=== PATIENT | male | born 1945 | race African-American/Black ===

== ENCOUNTER 2021-05-21 15:08 | Inpatient (IN) | payer MEDICARE, MEDICAID ==
[2021-05-21] MEDS ORDERED: Ondansetron PF 4 MG/2 ML Vial IVP PRN (23:30)
[2021-05-21] MEDS ORDERED: Docusate 100 MG CAP PO PRN (23:35)
[2021-05-22 00:30] VITALS: BMI 20.2
[2021-05-22 05:14] LABS: Anion Gap 13 mmol/L (10-20); BUN (Urea Nitrogen) 12 mg/dL (8.4-25.7); Calc. Creatinine Clearance 65 mL/min (70-130); Carbon Dioxide 24 mmol/L (23-31); Chloride 103 mmol/L (98-107); Glucose 70 mg/dL (83-110); Potassium 3.9 mmol/L (3.5-5.1); Sodium 136 mmol/L (136-145)
[2021-05-22 05:17] LABS: ALT (SGPT) 283 U/L (8-55); AST (SGOT) 282 U/L (5-34); Albumin 2.2 g/dL (3.4-4.8); Alkaline Phosphatase 128 U/L (40-110); Bilirubin, Total 1.5 mg/dL (0.2-1.2); Protein, Total 7.5 g/dL (5.8-8.1)
[2021-05-22 05:21] LABS: Band 8 % (5-11); Elliptocytes SLIGHT = 2-5 cells (100X) (0-1/hpf); Hemoglobin 8.9 g/dL (14.0-18.0); Hypochromia SLIGHT = 6-15 cells (100X) (0-5/hpf); Lymphocytes 6 % (21-51); MDiff Complete? YES; Mean Corpuscular HGB CONC 30.6 g/dL (32.0-36.0); Mean Corpuscular Hemoglobin 25.1 pg (27.0-31.0); Mean Corpuscular Volume 81.8 fL (78.0-98.0); Mean Platelet Volume 9.2 fL (7.4-10.4); Monocytes 7 % (0-10); Neutrophil 79 % (42-75); Platelet Count 450 thou/uL (130-400); Platelet Morphology Comment Appears Increased; Polychromasia SLIGHT = 2-3 cells (100X) (0-2/hpf); RBC Distribution Width 18.7 % (11.5-14.5); Red Blood Cell (RBC) Count 3.53 mill/uL (4.70-6.10); Target Cells SLIGHT = 2-5 cells (100X) (0-1/hpf); Troponin I 0.042 ng/mL (< 0.028); White Blood Cell (WBC) Count 20.8 thou/uL (4.8-10.8)
[2021-05-22] MEDS: Aspirin Chewable 81 MG TAB PO SCH (08:47)
[2021-05-22] MEDS: Clopidogrel Bisulfate 75 MG TAB PO SCH (08:47)
[2021-05-22] MEDS: Carvedilol 3.125 MG TAB PO SCH (08:47)
[2021-05-22] MEDS: Ferrous Sulfate 325 MG TAB PO SCH (08:47)
[2021-05-22] MEDS: Enoxaparin Sodium 40 MG/0.4 ML SYRINGE SC SCH (08:48)
[2021-05-22] MEDS: Polyethylene Glycol 3350 17 GM Packet PO SCH (08:48)
[2021-05-22] MEDS: Tamsulosin HCl 0.4 MG CAP PO SCH (08:48)
[2021-05-22] MEDS: Furosemide 40 MG TAB PO SCH (08:48)
[2021-05-22] MEDS ORDERED: Iopamidol-370 76% 500 ML 1 ML ONE (09:42)
[2021-05-22 13:11] LABS: Legionella Urinary Ag Negative (Negative); Strep pneumo Urine Ag NEGATIVE (NEGATIVE)
[2021-05-22] MEDS ORDERED: cefTRIAXone\\ROCEPHIN 1 GM in Sodium Chloride 0.9% 100 ML IVPB SCH (16:00)
[2021-05-22] MEDS ORDERED: Azithromycin 500 MG in Sodium Chloride 0.9% 250 ML 250 ML IVPB SCH (16:00)
[2021-05-22] MEDS: Bisacodyl 10 MG SUPP PR SCH ×2 (16:57→22:10)
[2021-05-22] MEDS: Atorvastatin Calcium 40 MG TAB PO SCH (22:12)
[2021-05-22] MEDS: Senokot S 8.6-50 MG TAB PO SCH (22:12)
[2021-05-23 05:11] LABS: Anion Gap 12 mmol/L (10-20); BUN (Urea Nitrogen) 13 mg/dL (8.4-25.7); Calc. Creatinine Clearance 55 mL/min (70-130); Calcium 8.8 mg/dL (7.8-10.44); Carbon Dioxide 23 mmol/L (23-31); Chloride 100 mmol/L (98-107); Glucose 131 mg/dL (83-110); Potassium 3.7 mmol/L (3.5-5.1); Sodium 131 mmol/L (136-145)
[2021-05-23 05:13] LABS: ALT (SGPT) 274 U/L (8-55); AST (SGOT) 260 U/L (5-34); Albumin 2.3 g/dL (3.4-4.8); Alkaline Phosphatase 143 U/L (40-110); Bilirubin, Direct 1.1 mg/dL (0.1-0.3); Bilirubin, Total 1.6 mg/dL (0.2-1.2); Protein, Total 7.9 g/dL (5.8-8.1)
[2021-05-23 05:22] LABS: Anisocytosis SLIGHT = 6-15 cells (100X) (0-5/hpf); Band 4 % (5-11); Burr Cells SLIGHT = 2-5 cells (100X) (0-1/hpf); Elliptocytes SLIGHT = 2-5 cells (100X) (0-1/hpf); Hemoglobin 9.7 g/dL (14.0-18.0); Hypochromia SLIGHT = 6-15 cells (100X) (0-5/hpf); Lymphocytes 17 % (21-51); MDiff Complete? YES; Mean Corpuscular HGB CONC 31.5 g/dL (32.0-36.0); Mean Corpuscular Hemoglobin 26.1 pg (27.0-31.0); Mean Platelet Volume 8.4 fL (7.4-10.4); Monocytes 11 % (0-10); Neutrophil 68 % (42-75); Platelet Count 472 thou/uL (130-400); Platelet Morphology Comment Appears Increased; Polychromasia SLIGHT = 2-3 cells (100X) (0-2/hpf); RBC Distribution Width 18.9 % (11.5-14.5); Red Blood Cell (RBC) Count 3.71 mill/uL (4.70-6.10); White Blood Cell (WBC) Count 21.5 thou/uL (4.8-10.8)
[2021-05-23] MEDS: Bisacodyl 10 MG SUPP PR SCH ×2 (06:15→16:10)
[2021-05-23] MEDS: Ferrous Sulfate 325 MG TAB PO SCH (08:15)
[2021-05-23] MEDS: Senokot S 8.6-50 MG TAB PO SCH ×2 (08:15→22:14)
[2021-05-23] MEDS: Carvedilol 3.125 MG TAB PO SCH (08:15)
[2021-05-23] MEDS: Clopidogrel Bisulfate 75 MG TAB PO SCH (08:15)
[2021-05-23] MEDS: Enoxaparin Sodium 40 MG/0.4 ML SYRINGE SC SCH (08:16)
[2021-05-23] MEDS: Aspirin Chewable 81 MG TAB PO SCH (08:16)
[2021-05-23] MEDS: Polyethylene Glycol 3350 17 GM Packet PO SCH (08:16)
[2021-05-23] MEDS: Tamsulosin HCl 0.4 MG CAP PO SCH (08:17)
[2021-05-23] MEDS: Furosemide 40 MG TAB PO SCH (08:17)
[2021-05-23] MEDS: Amoxicillin/Potassium Clav 875 MG TAB PO SCH (22:14)
[2021-05-23] MEDS: Atorvastatin Calcium 40 MG TAB PO SCH (22:15)
[2021-05-24 05:31] LABS: Anion Gap 10 mmol/L (10-20); BUN (Urea Nitrogen) 12 mg/dL (8.4-25.7); Calc. Creatinine Clearance 65 mL/min (70-130); Calcium 8.8 mg/dL (7.8-10.44); Carbon Dioxide 27 mmol/L (23-31); Chloride 99 mmol/L (98-107); Glucose 72 mg/dL (83-110); Potassium 3.6 mmol/L (3.5-5.1); Sodium 132 mmol/L (136-145)
[2021-05-24 06:03] LABS: #Eosinphils 0.1 thou/uL (0.0-0.7); #Lymphocytes 2.5 thou/uL (1.20-3.40); #Monocytes 1.2 thou/uL (0.11-0.59); #Neutrophils 10.1 thou/uL (1.40-6.50); %Basophils 0.3 % (0.0-1.0); %Eosinophils 0.7 % (0.0-10.0); %Lymphocytes 17.7 % (21.0-51.0); %Monocytes 8.5 % (0.0-10.0); %Neutrophils 72.7 % (42.0-75.0); Anisocytosis MODERATE=16-30 cells (100X) (0-5/hpf); Elliptocytes SLIGHT = 2-5 cells (100X) (0-1/hpf); Hemoglobin 9.5 g/dL (14.0-18.0); MDiff Complete? YES; Mean Corpuscular HGB CONC 31.6 g/dL (32.0-36.0); Mean Corpuscular Hemoglobin 26.3 pg (27.0-31.0); Mean Corpuscular Volume 83.2 fL (78.0-98.0); Mean Platelet Volume 8.3 fL (7.4-10.4); Platelet Count 421 thou/uL (130-400); RBC Distribution Width 19.2 % (11.5-14.5); Red Blood Cell (RBC) Count 3.61 mill/uL (4.70-6.10); White Blood Cell (WBC) Count 13.8 thou/uL (4.8-10.8)
[2021-05-24] MEDS: Carvedilol 3.125 MG TAB PO SCH (10:26)
[2021-05-24] MEDS: predniSONE 20 MG TAB PO SCH (10:26)
[2021-05-24] MEDS: Clopidogrel Bisulfate 75 MG TAB PO SCH (10:26)
[2021-05-24] MEDS: Ferrous Sulfate 325 MG TAB PO SCH (10:26)
[2021-05-24] MEDS: Aspirin Chewable 81 MG TAB PO SCH (10:26)
[2021-05-24] MEDS: Tamsulosin HCl 0.4 MG CAP PO SCH (10:26)
[2021-05-24] MEDS: Furosemide 40 MG TAB PO SCH (10:26)
[2021-05-24] MEDS: Polyethylene Glycol 3350 17 GM Packet PO SCH (10:27)
[2021-05-24] MEDS: Enoxaparin Sodium 40 MG/0.4 ML SYRINGE SC SCH (10:27)
[2021-05-24] MEDS: Senokot S 8.6-50 MG TAB PO SCH ×2 (10:27→21:36)
[2021-05-24] MEDS: Amoxicillin/Potassium Clav 875 MG TAB PO SCH ×2 (10:27→21:36)
[2021-05-24] MEDS: Amiodarone 200 MG TAB PO SCH (10:29)
[2021-05-24 16:17] LABS: A/G Ratio 0.4 (0.7-1.7); Albumin 1.9 g/dL (2.9-4.4); Alpha 1 0.4 g/dL (0.0-0.4); Alpha 2 0.7 g/dL (0.4-1.0); Beta 1.5 g/dL (0.7-1.3); Gamma 2.6 g/dL (0.4-1.8); Globulin, Total 5.2 g/dL (2.2-3.9); M-Spike Not Observed g/dL (Not Observed); Protein Electrophoresis Intrp Note: (.)
[2021-05-24] MEDS: Atorvastatin Calcium 40 MG TAB PO SCH (21:36)
[2021-05-24] MEDS: Acetaminophen 325 MG TAB PO PRN (21:39)
[2021-05-25 08:43] VITALS: BP 98/54; TEMP 97.7
[2021-05-25] MEDS: Tamsulosin HCl 0.4 MG CAP PO SCH (08:53)
[2021-05-25] MEDS: predniSONE 20 MG TAB PO SCH (08:53)
[2021-05-25] MEDS: Acetaminophen 325 MG TAB PO PRN (08:53)
[2021-05-25] MEDS: Carvedilol 3.125 MG TAB PO SCH (08:53)
[2021-05-25] MEDS: Aspirin Chewable 81 MG TAB PO SCH (08:53)
[2021-05-25] MEDS: Senokot S 8.6-50 MG TAB PO SCH (08:53)
[2021-05-25] MEDS: Amoxicillin/Potassium Clav 875 MG TAB PO SCH (08:53)
[2021-05-25] MEDS: Ferrous Sulfate 325 MG TAB PO SCH (08:54)
[2021-05-25] MEDS: Enoxaparin Sodium 40 MG/0.4 ML SYRINGE SC SCH (08:54)
[2021-05-25] MEDS: Clopidogrel Bisulfate 75 MG TAB PO SCH (08:54)
[2021-05-25] MEDS: Amiodarone 200 MG TAB PO SCH (08:54)
[2021-05-25] MEDS: Furosemide 40 MG TAB PO SCH (09:00)
[2021-05-25] MEDS: Polyethylene Glycol 3350 17 GM Packet PO SCH (09:00)
[2021-05-27 16:14] LABS: Albumin-Ur 12.2 % (.); Alpha 1 - Ur 5.9 % (.); Alpha 2 - Ur 16.2 % (.); Beta-Ur 27.4 % (.); Gamma-Ur 38.2 % (.); M-Spike,% Not Observed % (Not Observed); Protein, Urine 39.4 mg/dL (Not Estab.)
[2021-05-28 05:13] LABS: Kappa/Lambda Ratio 4.08 (1.83-14.26)
[2021-06-01 15:12] LABS: ANA Symphony (Qualitative) POSITIVE (Negative); ANA Symphony (Quantitative) 1.9 Ratio (< 0.7 Negative); CENP IgG Antibody 1.1 EliAU/mL (<7 Negative); Jo-1 IgG Antibody 0.9 EliAU/mL (<7 Negative); RNP70 IgG Antibody 0.6 EliAU/mL (<7 Negative); SSB/La IgG Antibody 0.8 EliAU/mL (<7 Negative); Scleroderma-70 IgG Antibody 1.2 EliAU/mL (<7 Negative); dsDNA IgG Antibody 2.1 IU/mL (<10 Negative)
== END 2021-05-25 11:55 | DRG 871 ==
LOC: NEURO 15:08 → MSONC 05-23 18:59
PROVIDERS: ADMIT Family Medicine; ATTEND Internal Medicine
DX: A41.9 Sepsis, unspecified organism (principal); Z20.822 Contact with and (suspected) exposure to COVID-19; J18.9 Pneumonia, unspecified organism; E44.0 Moderate protein-calorie malnutrition; R64 Cachexia; I47.2 Ventricular tachycardia; I69.351 Hemiplegia and hemiparesis following cerebral infarction affecting right dominant side; R74.8 Abnormal levels of other serum enzymes; I48.0 Paroxysmal atrial fibrillation; I25.10 Atherosclerotic heart disease of native coronary artery without angina pectoris; I25.5 Ischemic cardiomyopathy; I50.9 Heart failure, unspecified; I11.0 Hypertensive heart disease with heart failure; R91.8 Other nonspecific abnormal finding of lung field; R77.8 Other specified abnormalities of plasma proteins; I44.0 Atrioventricular block, first degree; K59.00 Constipation, unspecified; K21.9 Gastro-esophageal reflux disease without esophagitis; N40.0 Benign prostatic hyperplasia without lower urinary tract symptoms; Z95.810 Presence of automatic (implantable) cardiac defibrillator; Z68.20 Body mass index [BMI] 20.0-20.9, adult; Z86.74 Personal history of sudden cardiac arrest; Z79.899 Other long term (current) drug therapy; Z79.82 Long term (current) use of aspirin; Z79.02 Long term (current) use of antithrombotics/antiplatelets; Z87.891 Personal history of nicotine dependence
CPT/HCPCS: 36415; 71260; 74177; 80048; 80076; 82105; 82378; 83883; 84165; 84166; 84443; 85025; 86038; 86225; 86235; 86301; 87070; 87205; 87449; 87804; 87899; 93306; 94640; J0456; J0696; J1650; J3490; J7050; J7512; J7620; Q9967